=== PATIENT | female | born 2000 | race African-American/Black ===

== ENCOUNTER 2021-07-23 11:52 | Observation (INO) | payer OTHER, SELFPAY ==
[2021-07-23 12:50] VITALS: BMI 29.2
--- NOTE | 2021-07-23 12:52 | OBADM ---
This patient, Pro Antoine, admitted to the OB room [facility] Post [facility] for observation. Patient/family oriented to hospital policies and general routines including ID bracelet, bed and alarms, visiting hours, pain management, procedures, bathroom and other care routines, personal items, smoking policy, room service/diet, and visiting hours. Patient/Family are encouraged to report perceived risks to care and to ask questions if they do not understand what they are told or what they should do.
--- NOTE | 2021-07-23 13:00 | PC.NURSE ---
1218- Spoke to Dr. Peguero, orders to monitor for 1 more hour. Discharge to home after.
--- NOTE | 2021-07-25 13:43 | PM.OBTRLD ---
OB - Triage/Final Diagnosis Visit Information Reason for evaluation: decreased movement Comments/Additional reasons for admission: I have assessed the risk for this patient, Pro Antoine, and determined that she would benefit from observation care.
== END 2021-07-23 13:45 | disposition home or self-care (01) ==
PROVIDERS: Admitting Provider Obstetrics & Gynecology Gynecology; Visit Provider Obstetrics & Gynecology Gynecology
DX: O36.8120 Decreased fetal movements, second trimester, not applicable or unspecified (principal); Z3A.21 21 weeks gestation of pregnancy
CPT/HCPCS: G0378; G0379

== ENCOUNTER 2021-09-26 16:26 | Observation (INO) | payer MEDICAID, SELFPAY ==
[2021-09-26 16:17] VITALS: RESP 16; TEMP 36.7
--- NOTE | 2021-09-26 17:09 | OBADM ---
This patient, Pro Antoine, admit changed to observation. Patient oriented to hospital policies and general routines including ID bracelet, bed and alarms, visiting hours, pain management, procedures, bathroom and other care routines, personal items, smoking policy, room service/diet, call light and visiting hours. Patient is encouraged to report perceived risks to care and to ask questions if she does not understand what she is told or what she should do.
[2021-09-26 17:12] LABS: Add Urine Microscopic? YES; Appearance Urine Clear (Clear); Bilirubin Urine Negative (Negative); Blood Urine 2+ (Negative); Color Urine Straw (Yellow); Glucose Urine UA Negative (Negative); Ketones Urine 1+ mg/dL (Negative); Leukocyte Esterase Ur Negative LEU/UL (NEGATIVE); Nitrate Urine Negative (Negative); Protein Urine Negative (Negative); RBC Urine 0-2 /hpf (0-2); Squamous Epithelial Cell Urine Rare /hpf (Few); Urobilinogen Urine Negative mg/dL (<2.0); WBC Urine 0-3 /hpf (0-3)
[2021-09-26 17:15] LABS: Specific Grav Ur 1.003 (1.001-1.035)
[2021-09-26 17:31] LABS: Fetal Fibronectin Negative
--- NOTE | 2021-09-30 09:28 | P.PNOB_ITS ---
OB - Triage/Final Diagnosis Visit Information Reason for evaluation: threatened labor Comments/Additional reasons for admission: I have assessed the risk for this patient, Pro Antoine, and determined that she would benefit from observation care. Evaluation Laboratory results: Laboratory Tests 09/26/21 09/26/21 16:42 16:42 Urine Color Straw Urine Appearance Clear Urine pH 7.0 Ur Specific [place] 1.003 Urine Protein Negative Urine Glucose (UA) Negative Urine Ketones 1+ H Ur Blood (Man) 2+ H Urine Nitrate Negative Urine Bilirubin Negative Urine Urobilinogen Negative Ur Leukocyte Esterase Negative Urine RBC 0-2 Urine WBC 0-3 Ur Squamous Epith Cells Rare Fibronectin Negative
== END 2021-09-26 18:46 | disposition home or self-care (01) ==
LOC: ANHLDR 18:24
PROVIDERS: Admitting Provider Obstetrics & Gynecology; Visit Provider Obstetrics & Gynecology Gynecology
DX: O47.03 False labor before 37 completed weeks of gestation, third trimester (principal); Z3A.31 31 weeks gestation of pregnancy
CPT/HCPCS: 81001; 82731; 87086; 87088; G0378; G0379

== ENCOUNTER 2021-10-27 13:28 | Outpatient (RCR) | payer OTHER, SELFPAY ==
[2021-10-27 14:06] VITALS: BP 135/81; PULSE 89
== END 2021-12-12 09:43 | disposition home or self-care (01) ==
LOC: ANHOBOP 13:28
PROVIDERS: Visit Provider Obstetrics & Gynecology
DX: O36.8130 Decreased fetal movements, third trimester, not applicable or unspecified (principal); Z3A.36 36 weeks gestation of pregnancy
CPT/HCPCS: 59025

== ENCOUNTER 2021-10-27 14:12 | Emergency (ER) | payer OTHER, SELFPAY ==
[2021-10-27 14:18] VITALS: BP 128/82; PULSE 90; RESP 16; TEMP 36.3; O2SAT 100
--- NOTE | 2021-10-27 15:32 | ED.GENADULT ---
HPI - General Adult General Chief complaint: Unspecified Stated complaint: sore throat Time Seen by Provider: 10/27/21 15:07 Source: patient Mode of arrival: ambulatory Limitations: no limitations History of Present Illness HPI narrative: This is a 18-year-old female that presents to the emergency department for cold symptoms ongoing over the last week. Reports she was diagnosed with strep throat on the of this month. She was started on oral amoxicillin. Reports she has had congestion, rhinorrhea, and a mild sore throat. Reports her symptoms are mostly resolving. She wanted to get checked today and make sure the antibiotic was working. Denies fever, or shortness of breath. Related Data Home Medications Medication Instructions Recorded Confirmed [id number] fum-folic ac-om3 1 pkg PO DAILY 07/23/21 07/23/21 amoxicillin 10/27/21 10/27/21 Allergies Allergy/AdvReac Type Severity Reaction Status Date / Time No Known Allergies Allergy Verified 10/27/21 14:20 Review of Systems Review of Systems: CONSTITUTIONAL: Denies fever ENT: Reports rhinorrhea, congestion, sore throat RESPIRATORY: Denies cough or dyspnea. GASTROINTESTINAL: Denies abdominal pain or vaginal bleeding All systems reviewed & are unremarkable except as noted in HPI and below PMFSH Past Medical History Medical History (Updated 10/27/21 @ 15:38 by Marina Carter PA-C) No active medical problems Social History Social History (Updated 10/27/21 @ 15:34 by Marina Carter PA-C) Smoking status: Never smoker Exam Narrative: GENERAL: Well-appearing, well-nourished, and in no acute distress. HEAD: Normocephalic, atraumatic. EYES: EOMI. ENT: Nares clear, no rhinorrhea or epistaxis. Mucous membranes moist. Oropharynx without tonsillar hypertrophy, exudate or other lesions. Uvula midline. Bilateral TMs pearly ryan non-bulging NECK: Supple. No adenopathy or masses. CHEST: Clear to auscultation. No respiratory distress. No wheezes rales or rhonchi HEART: Regular rate and rhythm. No murmur heard. Normal peripheral pulses. ABDOMEN: Gravid EXTREMITIES: Normal range of motion. No edema. SKIN: Warm, dry, no rash. NEURO: No focal deficits. Alert and oriented x3. PSYCH: Normal mood and affect Course Vital Signs Vital signs: Vital Signs Temperature 97.4 F L 10/27/21 14:18 Pulse Rate 90 10/27/21 14:18 Respiratory Rate 16 10/27/21 14:18 Blood Pressure 128/82 10/27/21 14:18 Pulse Oximetry 100 10/27/21 14:18 Temperature 97.4 F L 10/27/21 14:18 Pulse Rate 90 10/27/21 14:18 Respiratory Rate 16 10/27/21 14:18 Blood Pressure 128/82 10/27/21 14:18 Pulse Oximetry 100 10/27/21 14:18 Medical Decision Making MDM Narrative Medical decision making narrative: Patient presents to the emergency department for cold symptoms ongoing for a week. Reports her symptoms have mostly been resolving. She presented today for evaluation to make sure her antibiotics were working. She was diagnosed with strep throat on the of this month. She is afebrile and nontoxic-appearing. No concerning erythema or edema on exam. She was instructed to finish her oral antibiotics as prescribed. She is currently 36 weeks . She was just monitored over at OB with a nonstress test that was reactive. Patient is stable and felt appropriate for further outpatient evaluation. She was given warnings to return to the ER Vital Signs Vital Signs: Vital Signs Temperature 97.4 F L 10/27/21 14:18 Pulse Rate 90 10/27/21 14:18 Respiratory Rate 16 10/27/21 14:18 Blood Pressure 128/82 10/27/21 14:18 Pulse Oximetry 100 10/27/21 14:18 Temperature 97.4 F L 10/27/21 14:18 Pulse Rate 90 10/27/21 14:18 Respiratory Rate 16 10/27/21 14:18 Blood Pressure 128/82 10/27/21 14:18 Pulse Oximetry 100 10/27/21 14:18 Critical Care Time Critical Care Time Critical Care Time: No Discharge Plan Discharge Clinical Impres
== END 2021-10-27 15:45 | disposition home or self-care (01) ==
PROVIDERS: Emergency Provider Emergency Medicine
DX: J02.0 Streptococcal pharyngitis (principal)
CPT/HCPCS: 99281

== ENCOUNTER 2021-11-06 11:14 | Outpatient (CLI) | payer OTHER, SELFPAY ==
[2021-11-06] VITALS (13 sets, daily range): BP systolic 112–140; BP diastolic 52–92; PULSE 102–116; O2SAT 99–100
[2021-11-06 13:00] LABS: Add Urine Microscopic? YES; Appearance Urine Cloudy (Clear); Bacteria Urine Trace /hpf; Bilirubin Urine Negative (Negative); Blood Urine Negative (Negative); Calcium Oxalate Crystals Urine Present /hpf; Color Urine Yellow (Yellow); Glucose Urine UA Negative (Negative); Ketones Urine Negative (Negative); Leukocyte Esterase Ur 2+ LEU/UL (NEGATIVE); Mucus Urine Rare /lpf; Nitrate Urine Negative (Negative); Protein Urine 1+ mg/dL (Negative); Specific Grav Ur 1.026 (1.001-1.035); Squamous Epithelial Cell Urine Many /hpf (Few); Total Protein Urine Random 10 mg/dL; Ur Ttl Prot Creatinine Ratio 0.05 mg/mg (0-0.20); WBC Urine 31-50 /hpf (0-3)
[2021-11-06 13:06] LABS: Alanine Aminotransferase 31 U/L (4-35); Albumin Level 3.5 g/dL (3.5-5.1); Alkaline Phosphatase 179 U/L (38-126); Anion Gap 9 mmol/L (8-16); Aspartate Amino Transferase 31 U/L (14-36); Bilirubin,Total 0.2 mg/dL (0.2-1.3); Blood Urea Nitrogen 7 mg/dL (7-17); Carbon Dioxide 18 mmol/L (22-30); Chloride 104 mmol/L (98-107); Estimated Glomerular Filt Rate > 60; Glucose 108 mg/dL (65-110); Potassium 3.8 mmol/L (3.4-5.0); Sodium 131 mmol/L (137-145); Uric Acid 3.2 mg/dL (2.5-7.5)
[2021-11-06 13:10] LABS: Basophils Percent Auto 0.1 % (0.2-1.2); Eosinophils Absolute Auto 0.1 K/mm3 (0-0.3); Eosinophils Percent Auto 1.2 % (0-4.4); Hematocrit 34.6 % (37.0-47.0); Hemoglobin 11.6 g/dL (12.0-15.0); Immature Granulocyte Absolute 0.04 K/mm3 (0.00-0.031); Immature Granulocyte Percent A 0.6 % (0-0.5); Lymphocytes Absolute Auto 1.08 K/mm3 (0.9-3.2); Lymphocytes Percent Auto 15.9 % (18.3-44.2); Mean Corpuscular HGB Conc 33.5 g/dl (32-36); Mean Corpuscular Hemoglobin 30.9 pg (26-34); Mean Platelet Volume 10.6 fl (7.4-10.4); Monocytes Absolute Auto 0.6 K/mm3 (0.1-0.6); Monocytes Percent Auto 8.7 % (2.6-8.5); Neutrophils Percent Auto 73.5 % (45.5-73.1); Platelet Count Result 217 k/mm3 (150-375); Red Blood Count 3.76 M/mm3 (4.2-5.4); Red Cell Distribution Width 12.1 % (11.5-14.5); White Blood Count 6.8 K/mm3 (4.5-10.0)
--- NOTE | 2021-11-06 13:20 | PC.NURSE ---
on unit,reviewed labs. Orders received to discharge pt with 24hr urine.
== END 2021-11-06 13:40 | disposition home or self-care (01) ==
LOC: ANHOBOP 11:19 → ANHOBPP 11:19
PROVIDERS: Visit Provider Obstetrics & Gynecology
DX: O16.3 Unspecified maternal hypertension, third trimester (principal); Z3A.37 37 weeks gestation of pregnancy
CPT/HCPCS: 36415; 59025; 80053; 81001; 82570; 84156; 84550; 85025; 87086; 87088; 99199

== ENCOUNTER 2021-11-07 13:19 | Outpatient (CLI) | payer OTHER, SELFPAY ==
[2021-11-07 16:52] LABS: Collection Time Urine 24 HOURS
[2021-11-07 17:01] LABS: Total Protein Urine Random 8 mg/dL
[2021-11-07 17:02] LABS: Creatinine Urine 105.7 mg/dL
[2021-11-07 17:04] LABS: Total Volume 24 Hour Urine 1100 ml
[2021-11-07 17:05] LABS: Creatinine Clearance Urine 188.2 ml/min (75-125); Patient Weight 183 Lbs; Total Protein Urine 24 Hr 88 mg/24hr (28-141); Total Volume 24 Hour Urine 1100 ml
== END 2021-11-07 13:20 | disposition home or self-care (01) ==
LOC: ANHOBOP 13:33
PROVIDERS: Visit Provider Obstetrics & Gynecology
DX: O16.9 Unspecified maternal hypertension, unspecified trimester (principal); Z3A.00 Weeks of gestation of pregnancy not specified
CPT/HCPCS: 81050; 82575; 84156

== ENCOUNTER 2021-11-10 10:27 | Observation (INO) | payer OTHER, SELFPAY ==
[2021-11-10 10:54] VITALS: BP 118/85; PULSE 112
[2021-11-10 11:00] VITALS: BP 131/93; PULSE 99
[2021-11-10 11:30] VITALS: TEMP 36.6
[2021-11-10 11:31] VITALS: BP 146/85; PULSE 90
[2021-11-10 12:00] VITALS: BP 134/81; PULSE 104
--- NOTE | 2021-11-10 12:47 | OBADM ---
This patient, Pro Antoine, admitted to the OB room Labor/Delivery/Recovery 106 for observation. Patient/family oriented to hospital policies and general routines including ID bracelet, bed and alarms, visiting hours, pain management, procedures, bathroom and other care routines, personal items, smoking policy, room service/diet, and visiting hours. Patient/Family are encouraged to report perceived risks to care and to ask questions if they do not understand what they are told or what they should do.
--- NOTE | 2021-11-18 09:07 | PM.OBTRLD ---
OB - Triage/Final Diagnosis Visit Information Comments/Additional reasons for admission: I have assessed the risk for this patient, Pro Antoine, and determined that she would benefit from observation care. Final Diagnosis (1) PIH ( induced hypertension): Code(s): O13.9 - Gestational [-induced] hypertension without significant proteinuria, unspecified trimester Status: Acute
== END 2021-11-10 12:45 | disposition home or self-care (01) ==
PROVIDERS: Admitting Provider Obstetrics & Gynecology; Visit Provider Obstetrics & Gynecology
DX: O13.3 Gestational [pregnancy-induced] hypertension without significant proteinuria, third trimester (principal); Z3A.38 38 weeks gestation of pregnancy
CPT/HCPCS: G0378; G0379

== ENCOUNTER 2021-11-15 16:44 | Inpatient (IN) | payer OTHER, SELFPAY ==
[2021-11-15] VITALS (31 sets, daily range): BP systolic 121–156; BP diastolic 44–90; PULSE 52–102; RESP 16; TEMP 36.6–37; O2SAT 77–100; BMI 32.8
[2021-11-15 17:24] LABS: Basophils Percent Auto 0.1 % (0.2-1.2); Eosinophils Absolute Auto 0.1 K/mm3 (0-0.3); Eosinophils Percent Auto 1.3 % (0-4.4); Hematocrit 37.5 % (37.0-47.0); Hemoglobin 12.6 g/dL (12.0-15.0); Immature Granulocyte Absolute 0.05 K/mm3 (0.00-0.031); Immature Granulocyte Percent A 0.7 % (0-0.5); Lymphocytes Absolute Auto 1.24 K/mm3 (0.9-3.2); Mean Corpuscular HGB Conc 33.6 g/dl (32-36); Mean Corpuscular Hemoglobin 31.3 pg (26-34); Mean Corpuscular Volume 93.1 fl (80-100); Mean Platelet Volume 10.6 fl (7.4-10.4); Monocytes Absolute Auto 0.5 K/mm3 (0.1-0.6); Monocytes Percent Auto 6.8 % (2.6-8.5); Neutrophils Percent Auto 73.1 % (45.5-73.1); Platelet Count Result 231 k/mm3 (150-375); Red Blood Count 4.03 M/mm3 (4.2-5.4); Red Cell Distribution Width 12.4 % (11.5-14.5); White Blood Count 6.9 K/mm3 (4.5-10.0)
[2021-11-15] MEDS: DINOPROSTONE 10 MG VAG INSERT VAGINAL (17:35)
--- NOTE | 2021-11-15 17:36 | LDADM ---
This patient, Pro Antoine, was admitted to Labor/Delivery/Recovery 108 on 11/15/21 at 16:44. Plans for labor, pain management and were discussed with patient. Patient/family oriented to hospital policies and general routines including ID bracelet, bed and alarms, visiting hours, pain management, procedures, bathroom and other care routines, personal items, smoking policy, room service/diet and guest tray routines, infant security routines, and visiting hours. Patient/Family are encouraged to report perceived risks to care and to ask questions if they do not understand what they are told or what they should do. See OBIX for further documentation.
[2021-11-15] MEDS: fentaNYL CITRATE INJ (*CRX) 100 MCG/2 ML VIAL 50 MCG IV PUSH (21:37)
[2021-11-15] MEDS: LACTATED RINGERS 1,000 ML 125 ML IV CONT (21:41)
--- NOTE | 2021-11-15 23:24 | WPDANESEPPF ---
Anes - Initial Pre Proc Eval Procedure: labor epidural Date/Time: 11/15/21 23:24 Surgeon: Lui Macias MD Pre Op Diagnosis: labor pain Pre Op Diagnosis: Induction of Labor Patient Data Age: 20 Gender: F Height: 1.6 m Weight: 84 kg Last Vital Signs Temp 36.9 C 11/15/21 18:51 Pulse 88 11/15/21 23:23 Resp 16 11/15/21 18:51 BP 123/71 11/15/21 23:23 Pulse Ox 99 11/15/21 23:23 Allergies Allergy/AdvReac Type Severity Reaction Status Date / Time No Known Allergies Allergy Verified 11/05/21 13:21 Home Medications Medication Instructions Recorded Confirmed Type [id number] fum-folic ac-om3 1 pkg PO DAILY 07/23/21 11/15/21 History Laboratory Tests 11/15/21 11/15/21 11/15/21 17:17 17:17 17:17 WBC 6.9 K/mm3 K/mm3 (4.5-10.0) RBC 4.03 M/mm3 L M/mm3 (4.2-5.4) Hgb 12.6 g/dL g/dL (12.0-15.0) Hct 37.5 % % (37.0-47.0) MCV 93.1 fl fl (80-100) MCH 31.3 pg pg (26-34) MCHC 33.6 g/dl g/dl (32-36) RDW 12.4 % % (11.5-14.5) Plt Count 231 k/mm3 k/mm3 (150-375) MPV 10.6 fl H fl (7.4-10.4) Immature Gran % (Auto) 0.7 % H % (0-0.5) Neut % (Auto) 73.1 % % (45.5-73.1) Lymph % (Auto) 18.0 % L % (18.3-44.2) [place] % (Auto) 6.8 % % (2.6-8.5) Eos % (Auto) 1.3 % % (0-4.4) Baso % (Auto) 0.1 % L % (0.2-1.2) Lymph # (Auto) 1.24 K/mm3 K/mm3 (0.9-3.2) [place] # (Auto) 0.5 K/mm3 K/mm3 (0.1-0.6) Eos # (Auto) 0.1 K/mm3 K/mm3 (0-0.3) Baso # (Auto) 0.0 K/mm3 K/mm3 (0.0-0.1) Abs Immat Gran (auto) 0.05 K/mm3 H K/mm3 (0.00-0.031) Absolute Neuts (auto) 5.0 K/mm3 K/mm3 (1.3-6.7) Absolute Nucleated RBC 0.0 K/mm3 K/mm3 (0.0-0.012) Nucleated RBC % 0.0 % % (0.0-0.2) RPR Pending Blood Type A Positive Antibody Screen Negative Patient hx anesthesia problems: none Family hx anesthesia problems: none Results Review: All pre-operative results and documents have been reviewed as part of the pre-operative evaluation. [facility] Past Medical History Medical History (Updated 10/28/21 @ 00:00 by Gunnar Yan) No active medical problems Family History Family History (Updated 11/05/21 @ 13:22 by Soila Hunter RN) Mother Hypertension Social History Social History (Updated 10/27/21 @ 15:34 by Marina Carter PA-C) Smoking status: Never smoker Substance use: never Spiritual care concerns: No Anes - Eval Final PreProcedure Day of Procedure 11/15/21 23:24 Patient weight: obese ASA classification: II Anesthesia type and monitoring: regional epidural and standard monitoring Results Review: All pre-operative results and documents have been reviewed as part of the pre-operative evaluation. Informed Consent: The patient's anesthetic plan and its attendant risks and benefits were discussed with the patient/family/POA. Questions were solicited and answers provided to the satisfaction of the patient/family/POA.
[2021-11-16] VITALS (201 sets, daily range): BP systolic 81–174; BP diastolic 44–139; PULSE 25–155; RESP 18–20; TEMP 36.3–37.4; O2SAT 75–100
[2021-11-16] MEDS: OXYTOCIN 30 UNITS/NS 500 ML 30 UNITS/500 ML BAG 6 UNITS IV CONT (05:33)
[2021-11-16] MEDS: ONDANSETRON INJ 4 MG/2 ML VIAL IV PUSH ×2 (05:33→16:04)
[2021-11-16] MEDS: LACTATED RINGERS 1,000 ML 125 ML IV CONT ×3 (05:48→21:03)
--- NOTE | 2021-11-16 08:53 | P.HP_ITS ---
Obstetrics - Admit Note Admission Note: record reviewed. No pertinent additions to the history and/or any subsequent changes in the physical findings that are not consistent with the expected course of the were found. Arom clear fluid. /-2 Additions to the history and/or subsequent changes in the physical findings ketan jenkins. None.
[2021-11-16] MEDS: fentaNYL CITRATE INJ (*CRX) 100 MCG/2 ML VIAL 50 MCG IV PUSH (16:43)
--- NOTE | 2021-11-16 23:03 | P.PCNOB_ITS ---
OB - Delivery Note Procedure Delivery date: 11/16/21 Procedure: Intrapartal events: None and Prolonged 2nd Stage > 2.5 hours Induction method: AROM, per pitocin protocol and per cervidil protocol Delivery monitor: external FHT and external uterine Route of delivery: Laceration Description: Vaginal - 2nd Degree Delivery repair: vicryl Specimen: Yes Quantitative Blood Loss (ml): 320 Anesthesia type: Epidural Disposition: floor Baby Date of : 11/16/21 Time of : 22:30 Weeks of gestation at delivery: 39 Infant gender: Male Weight (pounds): 6 Weight (ounces): 7 presentation: vertex position: Left Occiput Anterior Placenta delivery description: Spontaneous cord vessel description: 3 Vessels, Nuchal Cord, Loose, Reduced and Cl amped/Cut score one minute: 6 score five minutes: 8
[2021-11-16] MEDS: OXYTOCIN 30 UNITS/NS 500 ML 30 UNITS/500 ML BAG 125 UNITS IV CONT (23:05)
[2021-11-16] MEDS: WITCH HAZEL 40 PADS 1 PAD TOPICAL (23:34)
[2021-11-16] MEDS: BENZOCAINE 20% AER SPR (*SP) 56 GM CAN 1 SPRAY TOPICAL (23:34)
[2021-11-16] MEDS: IBUPROFEN 600 MG TABLET PO (23:34)
[2021-11-17] VITALS (11 sets, daily range): BP systolic 106–163; BP diastolic 60–139; PULSE 74–143; RESP 16–18; TEMP 36.4–36.7; O2SAT 99–100
[2021-11-17] MEDS: ACETAMINOPHEN 325 MG TABLET 650 MG PO ×2 (00:37→21:15)
[2021-11-17 04:54] LABS: Hematocrit 31.7 % (37.0-47.0); Hemoglobin 10.7 g/dL (12.0-15.0)
--- NOTE | 2021-11-17 05:30 | PC.NURSE ---
11/17/2021 at 0143 Patient viewed the discharge video Mother & Baby Care, The First Two Weeks . Patient was given the opportunity and encouraged to ask questions. Patient verbalized understanding of information shared and has been given the mother/baby guide for home reference.
--- NOTE | 2021-11-17 08:12 | WPDANLDPN2 ---
Anes-Prog Note L&D Date/Time: 11/17/21 08:12 Comfortable throughout: labor and delivery Neuraxial method: epidural Epidural/Spinal procedure site: clean & non-tender Neuro status: Neuro function grossly intact. Cardiovascular status: normal Respiratory status: normal Airway patency: baseline Mental status: baseline Post-Op hydration status: normal Vital Signs: Last Vital Signs Temp 97.8 F 11/17/21 01:51 Pulse 78 11/17/21 01:51 Resp 18 11/17/21 01:51 BP 129/84 11/17/21 01:51 Pulse Ox 99 11/17/21 01:51 Pain score (VAS): 0 I/O: Intake & Output 11/16/21 11/17/21 11/17/21 23:59 07:59 15:59 Intake Total 1500 Output Total 320 50 Balance 1180 -50 Post-procedural complaints: none Patient feedback: Patient satisfied with anesthetic care.
[2021-11-17] MEDS: DOCUSATE SODIUM 100 MG CAPSULE PO ×2 (08:32→16:15)
[2021-11-17] MEDS: MULTIVIT/MIN/PREN/FOL AC/IRON TABLET 1 TAB PO (08:32)
[2021-11-17] MEDS: IBUPROFEN 600 MG TABLET PO ×2 (08:32→16:15)
--- NOTE | 2021-11-17 13:09 | PM.OBPNVD ---
OB - PN: Subj Subjective Date/time seen: 11/17/21 13:09 S doing okay no complaints OB - PN: Obj Data Labs CBC & Chem 7: 11/17/21 04:17 Labs: Laboratory Results - last 24 hr 11/17/21 04:17 Hgb 10.7 L Hct 31.7 L OB - PN A/P Assessment and Plan (1) (normal spontaneous vaginal delivery): Code(s): O80 - Encounter for full-term uncomplicated delivery Status: Acute Assessment and Plan: continue with pp care. doing well Time Spent With Patient Time: Total time spent is greater than 50% in coordination of care (as documented) at patient's floor/unit and/or counseling patient: Exam Narrative: ff below umbilicus
--- NOTE | 2021-11-17 21:55 | PC.NURSE ---
Addendum entered by Kae Koch RN 11/17/21 21:56: Duplicate entry please disregard. Original Note: 11/17/2021 at 2000 Patient viewed the discharge video Mother & Baby Care, The First Two Weeks . Patient was given the opportunity and encouraged to ask questions. Patient verbalized understanding of information shared and has been given the mother/baby guide for home reference.
[2021-11-18] MEDS: IBUPROFEN 600 MG TABLET PO (05:20)
--- NOTE | 2021-11-18 07:45 | PC.NURSE ---
Consult with pt., mother reports infant has been eagerly latching with minimal tenderness. Observed mother is able to independently latch infant with appropriate positioning/alignment. eagerly latches on first attempt with long rhythmical draws and frequent swallowing noted. She denies any nipple discomfort, is feeding as required and waking to feed if needed. Reviewed positioning/alignment in cross cradle, holding breast in ?U? hold and guided asymmetrical latch on. Reviewed rational for each. Mother will switch to cradle infant will slip slightly to shallow latch. Demonstrated how to adjust latch more deeply while feeding. Mother reports she can feel the difference. Advised to hold breast during the entire feeding until engorgement has resolved. Suggested to stimulate while feeding to keep awake and nursing effectively for increased intake, increased stimulation of milk supply and to assist with maintaining deep latch. Mother is feeding as required. Infant has had at least 8 effective feedings in the past 24 hours, and is currently meeting outcomes for weight, output, jaundice and feeding frequencies. Mother states she feels confident to continue effective at home. Reviewed transition to breast milk, signs of adequate intake, and engorgement/relief. Instructed to call ICP if intake/output less than required. Reviewed regular medications mother is taking. Information provided per Aparna. Reviewed community resources on the [facility] website and in the Mom/Baby guide. Information on outpatient services provided. Mother has no further questions at this time. Instructed feeding should be initiated three hours from start of last feeding or if feeding cues are noted before until seen by ICP. Mother voiced understanding of information shared.
[2021-11-18 08:20] VITALS: BP 122/59; PULSE 93; RESP 16; TEMP 36.9; O2SAT 99
[2021-11-18] MEDS: DOCUSATE SODIUM 100 MG CAPSULE PO (08:30)
[2021-11-18] MEDS: MULTIVIT/MIN/PREN/FOL AC/IRON TABLET 1 TAB PO (08:30)
[2021-11-18 09:59] LABS: Rapid Plasma Reagin Non-Reactive (NonReactive)
[2021-11-19 11:15] VITALS: BP 143/84; PULSE 111; RESP 18; TEMP 36.9; O2SAT 99
--- NOTE | 2021-11-28 11:24 | PM.OBDSVD ---
DS: Admitting Diagnosis Discharge Date 11/18/21 Admitting Diagnosis labor OB - DS: Summary OB Procedures : Ultrasound OB Procedures Intrapartum: Spontaneous Vag Delivery OB Procedures: : None Time Spent with Patient Time attestation: Total time spent providing and/or coordinating discharge services: Discharge Plan Discharge Attending physician on discharge: Lui Macias Consulting providers: Herberth Rivas Discharging Clinician: Lui Macias Patient Disposition: Home, Self-Care Activity: may shower and pelvic rest Diet: regular Discharge Instructions: Education: Mom and Baby Guide and Preeclampsia Handout Given to: Mother Follow-Up: Call your delivering provider's office for an appointment to be seen in: 6 Weeks [facility]. Appointment Date/Time: November 19, 2021 at 10:00 am What to expect at your follow-up visit: Physical Assessment Call [phone] if you are unable to keep your appointment time. BREAST CARE: * Wear a snug supportive bra. * For engorgement discomfort: Breast Feeding: * Apply warm moist washcloths * Express milk as needed to relieve engorgement * Wear loose clothing * For sore nipples: * Identify correct latch-on * Apply warm moist washcloths before and after nursing * Air dry nipples after nursing * May apply Lansinoh cream to nipples EPISIOTOMY/PERINEAL CARE: * Until bleeding stops, use your melba bottle after urinating * Change your pad frequently throughout the day * You may take sitz baths several times a day (fill your bathtub with warm water and soak for 20 minutes.) Do NOT bathe in the water * No tub baths until seen by your physician - You may shower ACTIVITY: * Rest as much as possible. * Do not exercise or lift anything heavier than your baby (such as laundry or other children.) * Avoid stairs or driving as much as possible. * Do not put anything into the vagina. No douching, tampons, or sexual activity until seen by physician. NOTIFY PHYSICIAN IF YOU HAVE ANY QUESTIONS OR IF ANY OF THE FOLLOWING SYMPTOMS OCCUR: * If your episiotomy becomes red, swollen, or more painful than what you have experienced in the hospital. * If your vaginal bleeding becomes foul smelling. * If your vaginal bleeding becomes more heavy than a period or if your bleeding changes from pink to bright red. However, you may pass an occasional walnut-sized clot once or twice for the first week . * If you experience a sharp, shooting pain in you calves. * If you discover a hard, reddened area on your breast or if you experience flu-like symptoms. DIET: * Eat regular, well-balanced meals. * Drink plenty of fluids daily. If , drink to thirst. Stand Alone Forms: General Discharge Information Follow-up/Referrals: Lui Macias MD [Physician] - Discharge Medications: New acetaminophen [Mapap (acetaminophen)] 325 mg Tablet 650 mg PO Q6H PRN (Reason: Mild Pain (1-3) Or Headache) Qty: 60 RF: 0 ibuprofen 600 mg Tablet 600 mg PO Q6H PRN (Reason: Cramping) Qty: 60 RF: 1 Continued [id number] fum-folic ac-om3 [id number] mg-mcg-mg Combo Pack 1 pkg PO DAILY RF: 0 Date of admission: 11/15/21 16:44 Primary Care Provider: PHYSICIAN,[employer]ERTER Admitting Provider: Lui Macias Attending physician on admission: Lui Macias Condition: Stable
== END 2021-11-18 11:32 | disposition home or self-care (01) | DRG 560 ==
LOC: ANHLDR 11-16 23:07 → ANHOB2 11-17 01:43
PROVIDERS: Admitting Provider Obstetrics & Gynecology; Visit Provider Obstetrics & Gynecology
DX: O63.1 Prolonged second stage (of labor) (principal); O69.81X0 Labor and delivery complicated by cord around neck, without compression, not applicable or unspecified; O70.1 Second degree perineal laceration during delivery; O76 Abnormality in fetal heart rate and rhythm complicating labor and delivery; Z3A.39 39 weeks gestation of pregnancy; Z37.0 Single live birth
CPT/HCPCS: 36415; 85014; 85018; 85025; 86592; 86850; 86900; 86901; A9270; J2405; J2590; J3010; J7120